=== PATIENT | male | born 1965 | race Caucasian/White ===

== ENCOUNTER 2018-08-23 13:07 | Outpatient (CLI) | payer OTHER ==
--- NOTE | 2018-08-23 13:42 | ULT ---
Renal sonogram HISTORY: Chronic kidney disease. FINDINGS: Right kidney is 10.1 cm and left is 10.11 0.0 cm. Each has a normal sonographic appearance without evidence of mass, stone, or hydronephrosis. Urinary bladder is incompletely distended. IMPRESSION: Normal renal sonogram.
== END 2018-08-23 13:08 | disposition home or self-care (01) ==
LOC: BICULT 13:07
PROVIDERS: ATTEND Family Medicine
DX: N18.3 Chronic kidney disease, stage 3 (moderate) (principal)
CPT/HCPCS: 76770

== ENCOUNTER 2020-01-06 12:32 | Outpatient (CLI) | payer OTHER ==
[~2020-01-06 12:32] MED LIST: Iopamidol-370 76% 500 ML 1 ML ONE
--- NOTE | 2020-01-06 13:30 | CT ---
CT Abdomen Pelvis W WO con History: Hematuria Comparison: Renal ultrasound August 2018 Findings: Lung bases are relatively clear. No pericardial effusion. On the noncontrast portion of the examination there is no nephroureterolithiasis or hydroureteronephr osis. No secondary evidence of a recently passed stone. No abnormal renal enhancing mass nor urothelial enhancing mass. Urinary bladder wall enhancement is normal. On the delayed phase of contrast there are no filling defects within the posterior urinary bladder no r the renal calyces, pelvi nor ureters. Multiple splenic granulomas. The spleen, liver, gallbladder are unremarkable. No retroperitoneal marzena aortic adenopathy. Moderate S5 plaque of the aorta without aneurysmal dilatation. 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 T his high-grade degenerative disc space disease at L2-3 with Modic 3 endplate changes. No suspicious osteolytic or osteoblastic lesions. There is no acute osseous abnormality. The lumbar spine transverse processes are intact. No dilated loops of large or small bowel. No free intraperitoneal gas or fluid. Celiac trunk and superior mesenteric arteries are patent. Impression: 1. No nephroureterolithiasis or hydroureteronephrosis. No secondary evidence of a recently passed sto ne. 2. No abnormal enhancing renal nor urothelial mass. 3. No filling defects in the renal calyces, pelvi, ureters nor posterior urinary bladder. 4. Moderate prostatomegaly.
== END 2020-01-06 12:33 | disposition home or self-care (01) ==
LOC: BICCT 12:32
PROVIDERS: ATTEND Urology
DX: R31.29 Other microscopic hematuria (principal); N40.1 Benign prostatic hyperplasia with lower urinary tract symptoms
CPT/HCPCS: 74178

== ENCOUNTER 2024-01-04 13:07 | Outpatient (CLI) | payer OTHER | END 2024-01-04 13:08 | disposition home or self-care (01) | LOC: BICCT 13:07 | DX: Z12.2 Encounter for screening for malignant neoplasm of respiratory organs (principal); F17.210 Nicotine dependence, cigarettes, uncomplicated | CPT/HCPCS: 71271 ==

== ENCOUNTER 2025-03-31 13:54 | Outpatient (CLI) | payer OTHER | END 2025-03-31 13:55 | disposition home or self-care (01) | LOC: BICCT 13:54 | PROVIDERS: ATTEND Internal Medicine Critical Care Medicine | DX: R91.8 Other nonspecific abnormal finding of lung field (principal); J84.89 Other specified interstitial pulmonary diseases | CPT/HCPCS: 71250 ==